=== PATIENT | female | born 1955 | race Caucasian/White ===

== ENCOUNTER 2022-07-25 18:51 | Emergency (ER) | payer MEDICARE ==
[~2022-07-25] VITALS: Ht 162.6 cm; Wt 90.7 kg
[~2022-07-25 18:51] MED LIST: CYCL10 PO
--- NOTE | 2022-07-26 00:18 | NUR ---
07/26/22 0018 Justus Vallejo HISTORY, CHART, MEDICATIONS AND ALLERGIES REVIEWED BEFORE START OF PROCEDURE. PATIENT CONFIRMS NPO STATUS AND AGREES WITH SCHEDULED PROCEDURE. 3-LEAD EKG REVIEWED WITH PHYSICIAN PRIOR TO START OF PROCEDURE. MONITOR INTACT WITH CONTINUOUS PULSE OXIMETRY,CAPNOGRAPHY, 3-LEAD EKG, INTERMITTENT BP. SUPPLEMENTAL O2 TO BE TITRATED THROUGHOUT PROCEDURE TO MAINTAIN O2 SATURATION ABOVE 90%. PATIENT DETERMINED TO BE ASA APPROPRIATE FOR PROPOFOL SEDATION PRIOR TO START OF PROCEDURE BY DR. ODNNELLY.
[2022-07-26] MEDS ORDERED: Flonase 0.05% N16 GM (00:21)
[2022-07-26] MEDS ORDERED: ALBU90OI (00:21)
[2022-07-26] MEDS ORDERED: Prozac20 MG PO (00:22)
[2022-07-26] MEDS ORDERED: IBUP800 PO (00:23)
[2022-07-26] MEDS ORDERED: OMEP20ER PO (00:23)
--- NOTE | 2022-07-26 00:29 | NUR ---
PT ARRIVED TO UNIT VIA [facility] FROM EMERGENCY ROOM. ABLE TO TRANSFER HERSELF TO [facility] WITHOUT ASSISTANCE. VSS. SEE EMAR FOR NAUSEA MEDICATIONS GIVEN. PAIN RATED 5/10. SISTER AT BEDSIDE.
--- NOTE | 2022-07-26 01:06 | NUR ---
PT REPORTS PAIN OF 2/10. SEE EMAR FOR NAUSEA MEDICATIONS GIVEN. PT REPORTS NO NAUSEA AT THIS TIME. VSS. SISTER AT BEDSIDE. WILL CONTINUE TO MONITOR.
--- NOTE | 2022-07-26 01:27 | NUR ---
Discharge instructions reviewed with patient. Patient verbalizes understanding. Copy given to patient to take home. Discharged via wheelchair to private car for ride home WITH SISTER TO DRIVE HER HOME. PT REPORTS NO PAIN OR NAUSEA AT THIS TIME. TOLERATING ALAINA SIPS OF WATER WELL. IV REMOVED. WILL DISCHARGE HOME.
== END 2022-07-26 00:30 | disposition other institution (70) ==
LOC: ER 18:51
DX: T17.228A Food in pharynx causing other injury, initial encounter (principal); W45.8XXA Other foreign body or object entering through skin, initial encounter
CPT/HCPCS: 96374; 96375; 99284-25; J0780; J1610; J2250; J2405; J2704; J7120

== ENCOUNTER 2022-08-25 10:50 | Day surgery (SDC) | payer MEDICARE ==
[~2022-08-25] VITALS: Ht 162.6 cm; Wt 94.9 kg
[~2022-08-25 10:50] MED LIST changes: +ALBU90OI; +Flonase 0.05% N16 GM; +IBUP800 PO; +OMEP20ER PO; +Prozac20 MG PO
[2022-08-25] MEDS ORDERED: ALLEGRA ALLERG180 MG PO (11:12)
[2022-08-25] MEDS ORDERED: FLUT1DIS8 INH (11:12)
--- NOTE | 2022-08-25 11:40 | NUR ---
Patient confirms NPO status and agrees with scheduled surgery. Pre-Op teaching done. Pt verbalizes understanding. Patient States Post-Procedure ride home has been arranged.
--- NOTE | 2022-08-25 12:33 | NUR ---
08/25/22 1233 Riaz Morales HISTORY, CHART, MEDICATIONS AND ALLERGIES REVIEWED BEFORE START OF PROCEDURE. PATIENT CONFIRMS NPO STATUS AND AGREES WITH SCHEDULED PROCEDURE. 3-LEAD EKG REVIEWED WITH PHYSICIAN PRIOR TO START OF PROCEDURE. MONITOR INTACT WITH CONTINUOUS PULSE OXIMETRY,CAPNOGRAPHY, 3-LEAD EKG, INTERMITTENT BP. SUPPLEMENTAL O2 TO BE TITRATED THROUGHOUT PROCEDURE TO MAINTAIN O2 SATURATION ABOVE 90%. PATIENT DETERMINED TO BE ASA APPROPRIATE FOR PROPOFOL SEDATION PRIOR TO START OF PROCEDURE BY DR. DONNELLY
--- NOTE | 2022-08-25 14:19 | NUR ---
Patient up to Ambulate independently. Gait steady. Discharge instructions reviewed with patient. Patient verbalizes understanding. Copy given to patient to take home. Discharge instructions reviewed with patient. Patient verbalizes understanding. Copy given to patient to take home. Discharged via wheelchair to private car for ride home.
== END 2022-08-25 23:03 | disposition home or self-care (01) ==
LOC: ORSCMMR 10:50 → ORD 12:00 → ORSCMMR 12:00
PROVIDERS: Internal Medicine Gastroenterology
PROC: 0D758ZZ Dilation of Esophagus, Via Natural or Artificial Opening Endoscopic (ICD-10-PCS; principal; 2022-08-25 12:00)
PROC: 0DB58ZX Excision of Esophagus, Via Natural or Artificial Opening Endoscopic, Diagnostic (ICD-10-PCS; principal; 2022-08-25 12:00)
DX: R13.10 Dysphagia, unspecified (principal); R10.13 Epigastric pain; K22.2 Esophageal obstruction; K44.9 Diaphragmatic hernia without obstruction or gangrene; Z79.899 Other long term (current) drug therapy
CPT/HCPCS: 88305; C1726; J2704; J7120

== ENCOUNTER 2024-10-13 10:15 | Emergency (ER) | payer MEDICARE ==
[~2024-10-13] VITALS: Ht 162.6 cm; Wt 97.5 kg
[~2024-10-13 10:15] MED LIST changes: +ALLEGRA ALLERG180 MG PO; +FLUT1DIS8 INH
[2024-10-13 12:27] LABS: Albumin, Blood 3.7 g/dL (3.4-5.0); Albumin/Globulin Ratio 0.9 (0.8-1.8); Bilirubin, Total 0.3 mg/dL (0.1-1.0); Bun/Creatinine Ratio 26.3 (12.0-20.0); Calcium, Blood 9.7 mg/dL (8.5-10.1); Creatinine, Blood 0.84 mg/dL (0.40-1.00); Globulin, Blood 4.2 g/dL (2.2-4.0); Potassium, Blood 4.1 mmol/L (3.5-5.5); Total Protein, Blood 7.9 g/dL (6.4-8.2)
[2024-10-13 12:29] LABS: BASOPHILS ABSOLUTE AUTO 0.03 K/mm3 (0.00-0.23); BASOPHILS PERCENT AUTO 0 % (0-2); EOSINOPHILS ABSOLUTE AUTO 0.06 K/mm3 (0.00-0.68); EOSINOPHILS PERCENT AUTO 1 % (0-6); Hematocrit 40.9 % (33.0-51.0); Hemoglobin 13.5 g/dL (11.5-16.0); IMMATURE GRAN ABSOLUTE AUTO 0.04 K/mm3 (0.00-0.10); IMMATURE GRAN PERCENT AUTO 1 % (0-1); LYMPHOCYTES ABSOLUTE AUTO 0.68 K/mm3 (0.84-5.20); LYMPHOCYTES PERCENT AUTO 8 % (21-46); MONOCYTES ABSOLUTE AUTO 0.73 K/mm3 (0.16-1.47); MONOCYTES PERCENT AUTO 9 % (4-13); Mean Corpuscular HGB 29.1 pg (26.0-34.0); Mean Corpuscular Volume 88 fL (80-100); Mean Platelet Volume 10.5 fL (9.1-12.4); NEUTROPHILS ABSOLUTE AUTO 6.64 K/mm3 (1.96-9.15); NEUTROPHILS PERCENT AUTO 81 % (41-73); Platelet Count 270 K/mm3 (150-400); RDW Coefficient Variation 13.4 % (11.7-14.2); RDW Standard Deviation 43.8 fL (35.1-46.3); Red Blood Cell Count 4.64 M/mm3 (3.80-5.20); White Blood Cell Count 8.18 K/mm3 (4.00-11.30)
[2024-10-13 12:35] LABS: CORONAVIRUS COVID-19 AG Negative (NEGATIVE); INFLUENZA A AG Negative (NEGATIVE); INFLUENZA B AG Negative (NEGATIVE)
[2024-10-13] MEDS ORDERED: Ipratropium Bromide INH 0.02% 0.5 mg/2.5ML Vial INH SCH (12:40)
[2024-10-13] MEDS ORDERED: MethylPREDNISolone Sod Succ 125 MG Vial IV ONE (12:40)
[2024-10-13] MEDS ORDERED: Albuterol 2.5 MG/3 ML VIAL INH SCH (12:40)
[2024-10-13 14:15] VITALS: BP 134/95
[2024-10-13] MEDS ORDERED: AZIT250 PO (14:45)
[2024-10-13] MEDS ORDERED: PRED20 PO (14:45)
== END 2024-10-13 15:10 | disposition home or self-care (01) ==
LOC: ER 10:15
PROVIDERS: Student in an Organized Health Care Education/Training Program
DX: R06.02 Shortness of breath (principal); J45.909 Unspecified asthma, uncomplicated; Z79.51 Long term (current) use of inhaled steroids; Z79.899 Other long term (current) drug therapy
CPT/HCPCS: 71045; 80053; 84484; 85025; 87428-QW; 93005; 93010; 94644; 94664; 96374; 99284-25; J2919